=== PATIENT | male | born 1975 | race Caucasian/White ===

== ENCOUNTER 2023-11-05 13:29 | Emergency (ER) | payer OTHER ==
[~2023-11-05] VITALS: Ht 170.2 cm; Wt 76.2 kg
== END 2023-11-05 15:50 | disposition home or self-care (01) ==
LOC: ER 13:29
DX: S70.02XA Contusion of left hip, initial encounter (principal); M19.90 Unspecified osteoarthritis, unspecified site; S00.81XA Abrasion of other part of head, initial encounter; S40.211A Abrasion of right shoulder, initial encounter; V00.831A Fall from motorized mobility scooter, initial encounter; Y92.410 Unspecified street and highway as the place of occurrence of the external cause
CPT/HCPCS: 73502; 99283-25